=== PATIENT | male | born 1940 | race Caucasian/White ===

== ENCOUNTER → 2016-09-20 | Outpatient (CLI) | payer MEDICARE ==
[2016-09-20 09:55] LABS: CH 28.7; CHCM 32.3; HCT 40.5 % (39.0-53.0); HDW 2.68; HGB 12.7 gm/dL (13.0-17.5); MCHC 31.3 g/dL (31.0-37.0); MCV 89.3 fL (80.0-100.0); Mean Platelet Volume 7.1; RBC 4.54 m/uL (4.30-5.90); WBC 5.5 k/uL (3.8-10.6)
[2016-09-20 10:31] LABS: Calcium 9.9 mg/dL (8.4-10.2); Phosphorous 3.3 mg/dL (2.5-4.5); Potassium 5.5 mmol/L (3.5-5.1)
== END | disposition home or self-care (01) ==
LOC: LABWHC1 09:14
PROVIDERS: ATTEND Internal Medicine Nephrology
DX: I25.10 Atherosclerotic heart disease of native coronary artery without angina pectoris (principal); I12.9 Hypertensive chronic kidney disease with stage 1 through stage 4 chronic kidney disease, or unspecified chronic kidney disease; N18.3 Chronic kidney disease, stage 3 (moderate); M10.9 Gout, unspecified; E11.9 Type 2 diabetes mellitus without complications
CPT/HCPCS: 36415; 80069; 83970; 85027

== ENCOUNTER 2017-10-13 21:44 | Emergency (ER) | payer MEDICARE ==
[2017-10-13 22:02] VITALS: RESP 18
[2017-10-13] MEDS ORDERED: predniSONE 50 MG TAB PO STA (23:57)
--- NOTE | 2017-10-14 00:02 | ED ---
Back Pain HPI - General Chief Complaint: Back Pain/Injury Stated Complaint: sciatica Time Seen by Provider: 10/13/17 23:50 Source: patient, RN notes reviewed Mode of arrival: ambulatory Limitations: no limitations - History of Present Illness Initial Comments: This is a 77-year-old male who presents to the emergency department with chief complaint of sciatica. Patient states that in May he was diagnosed with spinal stenosis at L4 to L5. He states that at that time they gave him an epidural steroid which relieved his sciatic pain. He states that recently the pain has returned. He states that the pain is constant, running down the back of his left leg. He denies any saddle paresthesias or loss of bladder or bowel function. He denies any recent falls, injury or trauma. Denies numbness or tingling. - Related Data Home Medications Medication Instructions Recorded Confirmed Carvedilol [Coreg] 6.25 mg PO BID 12/22/14 10/13/17 Clopidogrel [Plavix] 75 mg PO DAILY 12/22/14 10/13/17 Febuxostat [Uloric] 40 mg PO HS 12/22/14 10/13/17 Fenofibrate Nanocrystallized 48 mg PO BID 12/22/14 10/13/17 [Fenofibrate] Simvastatin [Zocor] 20 mg PO HS 12/22/14 10/13/17 amLODIPine BESYLATE/BENAZEPRIL 1 tab PO BID 12/22/14 10/13/17 [Lotrel 5-40 mg Capsule] Previous Rx's Medication Instructions Recorded methylPREDNISolone [Medrol] 1 pack PO DIRECTED #1 tab.ds.pk 12/22/14 predniSONE 20 mg PO BID #8 tab 10/14/17 Allergies Allergy/AdvReac Type Severity Reaction Status Date / Time atorvastatin [From Lipitor] Allergy Unknown Verified 10/13/17 22:03 Review of Systems ROS Statement: Those systems with pertinent positive or pertinent negative responses have been documented in the HPI. ROS Other: All systems not noted in ROS Statement are negative. Past Medical History Past Medical History: Coronary Artery Disease (CAD), Hyperlipidemia, Hypertension Additional Past Medical History / Comment(s): sciatia History of Any Multi-Drug Resistant Organisms: None Reported Past Surgical History: Heart Catheterization With Stent, Joint Replacement Additional Past Surgical History / Comment(s): carotid sx Past Psychological History: No Psychological Hx Reported Smoking Status: Former smoker Past Alcohol Use History: Occasional Past Drug Use History: None Reported General Exam - General Exam Comments Initial Comments: General: Awake and alert, well-developed; in no apparent distress. HEENT: Head atraumatic, normocephalic. Pupils are equal, round and reactive to light. Extraocular movements intact. Oropharynx moist without erythema or exudate. Neck: Supple. Normal ROM. Cardiovascular: Regular rate and rhythm. No murmurs, rubs or gallops. Chest symmetrical. Pedal pulses are 2+ equal and palpable bilaterally. Respiratory: Lungs clear to auscultation bilaterally. No wheezes, rales or rhonchi. Normal respiratory effort with no use of accessory muscles. Musculoskeletal: Normal ROM, no tenderness bilateral upper and lower extremities. Ambulating normally. Skin: [place], warm and dry. Neurological: Alert and oriented x3. CN II-XII grossly intact. Speech is fluent and answers are appropriate. No focal neuro deficits. Psychiatric: Normal mood and affect. No overt signs of depression or anxiety noted. Limitations: no limitations Back exam: Present: normal inspection, full ROM. Absent: tenderness, paraspinal tenderness, vertebral tenderness Course Vital Signs 10/13/17 22:00 Temperature 98.0 F Pulse Rate 95 Respiratory 18 Rate Blood Pressure 171/68 O2 Sat by Pulse 95 Oximetry Medical Decision Making - Medical Decision Making This is a 77-year-old male who presents to the emergency department with chief complaint of sciatica. Patient denies any recent injuries, falls or trauma. Denies saddle paresthesias or loss of bladder or bowel function. Patient is ambulating normally and is neurovascularly intact. He will be started on a short course of oral steroids. Patient does state that he has a follow-up appointment with a community specialist soon. Vital signs are stable and patient is in no acute distress. He will be discharged home at this time. He is in agreement and voices understanding. All questions answered. Disposition Clinical Impression: Sciatica Disposition: HOME SELF-CARE Condition: Good Instructions: Sciatica (ED) Additional Instructions: Please take medications as prescribed. Please follow up with primary care provider within 1-2 days. Return to emergency department if symptoms should worsen or any concerns arise. Prescriptions: predniSONE 20 mg PO BID #8 tab Is patient prescribed a controlled substance at d/c from ED?: No Referrals: Jones Becerra MD [Primary Care Provider] - 1-2 days Time of Disposition: 00:02
[2017-10-14 00:29] VITALS: BP 159/79; PULSE 90; TEMP 97.8
== END 2017-10-14 00:29 | disposition home or self-care (01) ==
LOC: EC 21:44
DX: M54.32 Sciatica, left side (principal); I25.10 Atherosclerotic heart disease of native coronary artery without angina pectoris; E78.5 Hyperlipidemia, unspecified; I10 Essential (primary) hypertension; Z95.5 Presence of coronary angioplasty implant and graft; Z87.891 Personal history of nicotine dependence; Z79.02 Long term (current) use of antithrombotics/antiplatelets; Z79.899 Other long term (current) drug therapy; Z88.8 Allergy status to other drugs, medicaments and biological substances
CPT/HCPCS: 99283; J7512